=== PATIENT | female | born 1980 | race African-American/Black ===

== ENCOUNTER 2016-09-28 19:55 | Emergency (ER) | payer SELFPAY ==
[2016-09-28 19:57] VITALS: BP 133/75; PULSE 80; RESP 16; TEMP 98; O2SAT 99
--- NOTE | 2016-09-28 20:49 | PD ---
HPI Chief Complaint: Pain: Acute or Chronic Time Seen by Provider: 20:46 Travel History International Travel<30 days: No Contact w/Intl Traveler<30days: No Traveled to known affect area: No History of Present Illness HPI 36-year-old black female presents to emergency Department with complaints of left sided neck and shoulder pain for 5 days. She states that she feels that she may have slept wrong initially. It is causing pain down into her arm. She states the pain is mild to moderate. Worse with movement of the neck and use of the left arm. She denies any direct trauma. She denies any recent illness. She does complain of some tingling into the hand. No numbness. PFSH Past Medical History Medical History: Denies Significant Hx ?: Not Past Surgical History Cholecystectomy: Yes Social History Alcohol Use: Yes Tobacco Use: Yes Substance Use: No Allergies-Medications (Allergen,Severity, Reaction): Coded Allergies: No Known Allergies (Unverified , 09/28/16) Reported Meds & Prescriptions Reported Meds & Active Scripts Active Flexeril (Cyclobenzaprine HCl) 10 Mg Tab 10 Mg PO TID Diclofenac Sodium DR (Diclofenac Sodium) 75 Mg Tabdr 75 Mg PO BID Review of Systems Except as stated in HPI: all other systems reviewed are Neg Physical Exam Narrative GENERAL: Well-developed, well-nourished in no acute distress. Nontoxic appearing. HEAD: Normocephalic, atraumatic. EYES: Pupils equal round and reactive. Extraocular motions intact. No scleral icterus. No injection or drainage. ENT: TMs clear without erythema. The external auditory canals clear. Nose: clear . Posterior pharynx is pink and moist. No tonsillar edema or exudate. Uvula midline. Airway patent. NECK: Trachea midline.Supple, left paracervical tenderness down into the trapezius. Moves head freely. No central bony tenderness or spasm. CARDIOVASCULAR: Regular rate and rhythm without murmurs, gallops, or rubs. RESPIRATORY: Clear to auscultation. Breath sounds equal bilaterally. No wheezes , rales, or rhonchi. GASTROINTESTINAL: Abdomen soft, non-tender, nondistended. No hepato-splenomegaly , or palpable masses. No guarding. EXTREMITIES: No clubbing, cyanosis, or edema. No joint tenderness, effusion, or edema noted. Patient complains of tenderness of the musculature of the shoulder. No collateral your mode joint pain itself. No pain in the elbow, wrist or hand. Median/ulnar/radial nerves intact. BACK: Nontender without deformity or crepitance. No flank tenderness. Data Data Last Documented VS Vital Signs Date Time Temp Pulse Resp B/P Pulse Ox O2 Delivery O2 Flow Rate FiO2 09/28/16 19:57 98.0 80 16 133/75 99 Room Air Orders Naproxen (Naprosyn) (09/28/16 21:00) Cyclobenzaprine (Flexeril) (09/28/16 21:00) MDM Medical Decision Making Medical Screen Exam Complete: Yes Emergency Medical Condition: No Medical Record Reviewed: Yes Differential Diagnosis Differential diagnosis: Cervical radiculopathy, sprain, strain, spasm Narrative Course A medical screening exam was performed: At the time of evaluation the presenting medical condition was determined not to be of an emergent nature. The patient was given the option of receiving additional care, but declined. Patient was given options for additional community resources from which to obtain care. The Patient Has Been advised to seek medical attention for their presenting complaint. The patient has been advised to return to the ER at any time if an emergent condition develops. The patient is opted to stay. This is cervical radiculopathy Patient's given Naprosyn 500 mg, Flexeril 10 mg by mouth and Decadron 10 mg IM. Diagnosis Primary Impression: Cervical radiculopathy Patient Instructions: General Instructions Departure Forms: Tests/Procedures, Work Release Special Instructions: No work 3 days. Additional Instructions: Rest. Ice for the next 3 days followed by heat . Flexeril and Voltaren. Follow-up with a primary care doctor in one week. Return to the ER for emergencies. Med/Other Pt SpecificInfo: Prescription(s) given Scripts Cyclobenzaprine (Flexeril)10 Mg Tab10 Mg PO TID #30 TAB Prov:Britany Jones DO 09/28/[address] 75 Mg Tabdr75 Mg PO BID #20 TAB Prov:Britany Jones DO 09/28/16 Disposition: 01 DISCHARGE HOME Condition: Stable Darron Wick Sep 28, 2016 20:49
[2016-09-28] MEDS ORDERED: CYCL1TAB29 PO (20:58)
[2016-09-28] MEDS ORDERED: DICL75TA PO (20:58)
[2016-09-28] MEDS ORDERED: NAPROXEN 500 MG TAB PO ONE (21:00)
[2016-09-28] MEDS ORDERED: CYCLOBENZAPRINE HCL 10 MG TAB PO ONE (21:00)
[2016-09-28] MEDS ORDERED: DEXAMETHASONE SOD PHOS 20 MG/5 ML VIAL IM ONE (21:15)
== END 2016-09-28 21:54 | disposition home or self-care (01) ==
LOC: NEPB 19:55
DX: M54.12 Radiculopathy, cervical region (principal)
CPT/HCPCS: 96372; 99282; J1100